=== PATIENT | female | born 1990 | race African-American/Black ===

== ENCOUNTER 2017-10-01 02:38 | Emergency (ER) | payer BC ==
[2017-10-01 03:35] LABS: Reticulocyte Count 3.4 % (0.5-1.5)
[2017-10-01 03:36] LABS: Hemoglobin 11.4 g/dL (12.0-16.0); Mean Corpuscular HGB CONC 35.4 g/dL (32.0-36.0); Mean Corpuscular Hemoglobin 29.9 pg (27.0-31.0); Mean Corpuscular Volume 84.4 fl (81.0-99.0); Mean Platelet Volume 6.7 fL (7.4-10.4); Platelet Count 313 thou/uL (130-400); RBC Distribution Width 14.9 % (11.5-14.5); Red Blood Cell (RBC) Count 3.82 mill/uL (4.20-5.40)
[2017-10-01 03:37] LABS: BHCG - Serum Negative (NEGATIVE); Pregs Control Background? CLEAR/WHITE (CLR/WHITE); Pregs Control Bar Appear? YES (CONTROL BAR)
[2017-10-01 03:45] LABS: ALT (SGPT) 16 U/L (8-55); AST (SGOT) 21 U/L (5-34); Albumin 4.6 g/dL (3.5-5.0); Alkaline Phosphatase 50 U/L (40-150); Anion Gap 14 mmol/L (10-20); BUN (Urea Nitrogen) 11 mg/dL (7.0-18.7); Bilirubin, Total 2.2 mg/dL (0.2-1.2); Calc. Creatinine Clearance 0 mL/min (70-130); Calcium 9.3 mg/dL (7.8-10.44); Carbon Dioxide 20 mmol/L (22-29); Chloride 106 mmol/L (98-107); Estimated GFR-MDRD Greater than 90; Globulin 3.2 g/dL (2.4-3.5); Glucose 88 mg/dL (70-105); Potassium 4.6 mmol/L (3.5-5.1); Protein, Total 7.8 g/dL (6.0-8.3); Sodium 135 mmol/L (136-145)
[2017-10-01 03:49] LABS: Band 1 % (5-11); Eosinophils 1 % (0-10); Hemoglobin C Crystals SLIGHT (None Seen); Lymphocytes 36 % (21-51); MDiff Complete? YES; Monocytes 3 % (0-10); Neutrophil 59 % (42-75); Target Cells SLIGHT = 2-5 cells (100X) (0-1/hpf); White Blood Cell (WBC) Count 9.6 thou/uL (4.8-10.8)
[2017-10-01] MEDS ORDERED: Ketorolac Tromethamine 30 MG/ML VIAL ONE (03:49)
== END 2017-10-01 04:52 | disposition home or self-care (01) ==
LOC: ERS 02:38
DX: D57.1 Sickle-cell disease without crisis (principal)
CPT/HCPCS: 80053; 84703; 85025; 85046; 96361; 96374; J1885

== ENCOUNTER 2017-12-21 21:11 | Emergency (ER) | payer BC ==
[2017-12-21 22:32] LABS: Pregnancy Test - Urine (BHCG) Negative (Negative); Pregu Control Background? CLEAR/WHITE (CLR/WHITE); Pregu Control Bar Appear? YES (CONTROL BAR); Specific Gravity 1.013 (1.002-1.036)
[2017-12-21] MEDS ORDERED: Ketorolac Tromethamine 30 MG/ML VIAL ONE (22:48)
== END 2017-12-21 23:07 | disposition home or self-care (01) ==
LOC: ERS 21:11
DX: K02.9 Dental caries, unspecified (principal); K05.10 Chronic gingivitis, plaque induced; D57.1 Sickle-cell disease without crisis
CPT/HCPCS: 81025; 96372; J1885

== ENCOUNTER 2018-01-03 05:37 | Emergency (ER) | payer BC | END 2018-01-03 06:02 | disposition home or self-care (01) | LOC: ERS 05:37 | DX: R05 Cough (principal); D57.1 Sickle-cell disease without crisis | CPT/HCPCS: 99283 ==

== ENCOUNTER 2018-04-26 23:46 | Emergency (ER) | payer BC ==
[2018-04-27 00:54] LABS: Anion Gap 13 mmol/L (10-20); BUN (Urea Nitrogen) 11 mg/dL (7.0-18.7); Calc. Creatinine Clearance 0 mL/min (70-130); Carbon Dioxide 23 mmol/L (22-29); Chloride 106 mmol/L (98-107); Estimated GFR-MDRD Greater than 90; Glucose 90 mg/dL (70-105); Potassium 3.8 mmol/L (3.5-5.1); Sodium 138 mmol/L (136-145)
[2018-04-27 01:09] LABS: Band 46 % (5-11); Eosinophils 6 % (0-10); Hemoglobin 10.8 g/dL (12.0-16.0); Hypochromia SLIGHT = 6-15 cells (100X) (0-5/hpf); Lymphocytes 1 % (21-51); MDiff Complete? YES; Mean Corpuscular HGB CONC 36.5 g/dL (32.0-36.0); Mean Corpuscular Hemoglobin 30.3 pg (27.0-31.0); Mean Corpuscular Volume 82.9 fL (78.0-98.0); Mean Platelet Volume 7.4 fL (7.4-10.4); Myelocyte 1 % (0-0); Neutrophil 4 % (42-75); Nucleated RBC 2 % (0); PLT Morphology Comment Appears Adequate; Platelet Count 264 thou/uL (130-400); Polychromasia SLIGHT = 2-3 cells (100X) (0-2/hpf); RBC Distribution Width 15.7 % (11.5-14.5); Reactive Lymphocytes 42 % (0-10); Red Blood Cell (RBC) Count 3.57 mill/uL (4.20-5.40); White Blood Cell (WBC) Count 10.4 thou/uL (4.8-10.8)
[2018-04-27 01:53] LABS: ALT (SGPT) 47 U/L (8-55); AST (SGOT) 38 U/L (5-34); Albumin 4.5 g/dL (3.5-5.0); Alkaline Phosphatase 49 U/L (40-150); Bilirubin, Direct 0.7 mg/dL (0.1-0.3); Bilirubin, Total 2.2 mg/dL (0.2-1.2); Protein, Total 7.5 g/dL (6.0-8.3)
[2018-04-27 03:24] LABS: Bilirubin Negative (Negative); Blood, Urine Negative (Negative); Clarity CLEAR (Clear); Glucose, Urine (Dipstick) Negative (Negative); Leukocyte Negative (Negative); Nitrite Negative (Negative); Pregnancy Test - Urine (BHCG) Negative (Negative); Protein, Urine (Dipstick) Negative (Neg-Trace); Specific Gravity, Urine 1.011 (1.002-1.036)
[2018-04-27 03:25] LABS: Pregu Control Background? CLEAR/WHITE (CLR/WHITE); Pregu Control Bar Appear? YES (CONTROL BAR); Specific Gravity 1.011 (1.002-1.036)
[2018-04-27] MEDS ORDERED: Ketorolac Tromethamine 30 MG/ML VIAL ONE (03:32)
== END 2018-04-27 04:02 | disposition home or self-care (01) ==
LOC: ERS 23:46
DX: D57.00 Hb-SS disease with crisis, unspecified (principal)
CPT/HCPCS: 36415; 80048; 80076; 81003; 81025; 85025; 85046; 96361; 96374; J1885

== ENCOUNTER 2018-05-15 21:28 | Emergency (ER) | payer BC | END 2018-05-15 22:30 | disposition home or self-care (01) | LOC: ERS 21:28 | DX: B02.9 Zoster without complications (principal) | CPT/HCPCS: 99282 ==

== ENCOUNTER 2018-05-27 09:31 | Emergency (ER) | payer BC ==
[2018-05-27 10:27] LABS: Bilirubin Negative (Negative); Blood, Urine Negative (Negative); Clarity CLEAR (Clear); Glucose, Urine (Dipstick) Negative (Negative); Leukocyte Negative (Negative); Nitrite Negative (Negative); Protein, Urine (Dipstick) Negative (Neg-Trace); Specific Gravity, Urine 1.013 (1.002-1.036)
[2018-05-27 10:31] LABS: Pregnancy Test - Urine (BHCG) Negative (Negative); Pregu Control Background? CLEAR/WHITE (CLR/WHITE); Pregu Control Bar Appear? YES (CONTROL BAR); Specific Gravity 1.013 (1.002-1.036)
[2018-05-27 10:41] LABS: Reticulocyte Count 3.9 % (0.5-1.5)
[2018-05-27 10:59] LABS: Anion Gap 10 mmol/L (10-20); BUN (Urea Nitrogen) 6 mg/dL (7.0-18.7); Calc. Creatinine Clearance 0 mL/min (70-130); Carbon Dioxide 25 mmol/L (22-29); Chloride 106 mmol/L (98-107); Estimated GFR-MDRD Greater than 90; Sodium 137 mmol/L (136-145)
[2018-05-27 11:00] LABS: ALT (SGPT) 10 U/L (8-55); AST (SGOT) 16 U/L (5-34); Albumin 4.3 g/dL (3.5-5.0); Alkaline Phosphatase 44 U/L (40-150); Bilirubin, Total 2.7 mg/dL (0.2-1.2); Globulin 2.8 g/dL (2.4-3.5); Glucose 88 mg/dL (70-105); Protein, Total 7.1 g/dL (6.0-8.3)
[2018-05-27 11:04] LABS: Band 2 % (5-11); Eosinophils 2 % (0-10); Hemoglobin 10.8 g/dL (12.0-16.0); Hemoglobin C Crystals MODERATE (None Seen); Lymphocytes 41 % (21-51); MDiff Complete? YES; Mean Corpuscular HGB CONC 35.1 g/dL (32.0-36.0); Mean Corpuscular Hemoglobin 29.5 pg (27.0-31.0); Mean Corpuscular Volume 84.2 fL (78.0-98.0); Mean Platelet Volume 7.6 fL (7.4-10.4); Monocytes 5 % (0-10); Neutrophil 47 % (42-75); PLT Morphology Comment Appears Adequate; Platelet Count 307 thou/uL (130-400); Polychromasia MODERATE = 3-4 cells (100X) (0-2/hpf); RBC Distribution Width 15.7 % (11.5-14.5); Reactive Lymphocytes 1 % (0-10); Red Blood Cell (RBC) Count 3.64 mill/uL (4.20-5.40); Reflex for Review?? NO; Sickle Cells SLIGHT = 1-5 cells (100X) (None Seen); Target Cells MODERATE= 6-15 cells (100X) (0-1/hpf); White Blood Cell (WBC) Count 7.4 thou/uL (4.8-10.8)
[2018-05-27] MEDS ORDERED: Acetaminophen 500 MG TAB ONE (11:16)
[2018-05-27] MEDS ORDERED: diphenhydrAMINE 50 MG/ML VIAL ONE (11:16)
[2018-05-27] MEDS ORDERED: Morphine 10 MG/ML VIAL ONE (11:16)
== END 2018-05-27 13:30 | disposition home or self-care (01) ==
LOC: ERS 09:31
DX: D57.00 Hb-SS disease with crisis, unspecified (principal)
CPT/HCPCS: 36415; 80053; 81003; 81025; 85025; 85046; 96361; 96374; 96375; J1200; J2270

== ENCOUNTER 2018-07-24 00:30 | Emergency (ER) | payer BC ==
[2018-07-24] MEDS ORDERED: Ketorolac Tromethamine 60 MG/2 ML VIAL ONE (02:51)
== END 2018-07-24 03:12 | disposition home or self-care (01) ==
LOC: ERS 00:30
DX: M26.622 Arthralgia of left temporomandibular joint (principal); D57.1 Sickle-cell disease without crisis
CPT/HCPCS: 87081; 87430; 96372; J1885

== ENCOUNTER 2018-08-27 08:50 | Observation (INO) | payer BC ==
[2018-08-27] MEDS ORDERED: Acetaminophen 500 MG TAB ONE (09:00)
[2018-08-27] MEDS ORDERED: diphenhydrAMINE 50 MG/ML VIAL ONE (09:11)
[2018-08-27] MEDS ORDERED: Morphine 4 MG/ML VIAL ONE (09:11)
[2018-08-27 09:36] LABS: ALT (SGPT) 22 U/L (8-55); AST (SGOT) 31 U/L (5-34); Albumin 4.2 g/dL (3.5-5.0); Alkaline Phosphatase 61 U/L (40-150); Anion Gap 13 mmol/L (10-20); BUN (Urea Nitrogen) 5 mg/dL (7.0-18.7); Bilirubin, Total 1.6 mg/dL (0.2-1.2); Calc. Creatinine Clearance 0 mL/min (70-130); Calcium 8.9 mg/dL (7.8-10.44); Carbon Dioxide 22 mmol/L (22-29); Chloride 106 mmol/L (98-107); Estimated GFR-MDRD Greater than 90; Globulin 3.4 g/dL (2.4-3.5); Glucose 91 mg/dL (70-105); Potassium 3.7 mmol/L (3.5-5.1); Protein, Total 7.6 g/dL (6.0-8.3); Reticulocyte Count 4.5 % (0.5-1.5); Sodium 137 mmol/L (136-145)
[2018-08-27 09:37] LABS: Hemoglobin 10.5 g/dL (12.0-16.0); Mean Corpuscular HGB CONC 35.3 g/dL (32.0-36.0); Mean Corpuscular Hemoglobin 28.8 pg (27.0-31.0); Mean Corpuscular Volume 81.4 fL (78.0-98.0); Mean Platelet Volume 7.8 fL (7.4-10.4); Platelet Count 285 thou/uL (130-400); RBC Distribution Width 16.7 % (11.5-14.5); Red Blood Cell (RBC) Count 3.64 mill/uL (4.20-5.40)
[2018-08-27 10:05] LABS: Band 2 % (5-11); Eosinophils 2 % (0-10); Hemoglobin C Crystals MODERATE (None Seen); Lymphocytes 27 % (21-51); MDiff Complete? YES; Metamyelocyte 2 % (0-0); Monocytes 1 % (0-10); Neutrophil 63 % (42-75); Nucleated RBC 3 % (0); Reactive Lymphocytes 3 % (0-10); Reflex for Review?? NO; Sickle Cells SLIGHT = 1-5 cells (100X) (None Seen); Target Cells MODERATE= 6-15 cells (100X) (0-1/hpf)
[2018-08-27] MEDS ORDERED: cefTRIAXone\\ROCEPHIN 1 GM VIAL ONE (10:14)
[2018-08-27] MEDS ORDERED: Azithromycin 500 MG VIAL ONE (10:14)
--- NOTE | 2018-08-27 10:26 | RAD ---
SINGLE VIEW OF THE CHEST: COMPARISON: 08/27/2018. HISTORY: Chest pain that is worsening today. Sickle cell disease. FINDINGS: A single view of the chest shows a normal-size cardiomediastinal silhouette. There is no evidence of consolidation, mass, or pleural effusion. The bones are unremarkable. IMPRESSION: No evidence of acute cardiopulmonary disease. POS: [facility]
[2018-08-27] MEDS ORDERED: Enoxaparin Sodium 40 MG/0.4 ML SYRINGE SC SCH (13:29)
[2018-08-27] MEDS ORDERED: Ondansetron PF 4 MG/2 ML Vial IVP PRN (13:29)
[2018-08-27] MEDS: Sodium Chloride 0.9% 1,000 ML IV SCH ×2 (13:34→20:35)
[2018-08-27] MEDS ORDERED: Acetaminophen 325 MG TAB PO PRN (13:42)
[2018-08-27] MEDS: Morphine 4 MG/ML VIAL SLOW IVP PRN ×2 (13:49→20:30)
[2018-08-27 14:15] VITALS: BMI 26.3
[2018-08-27] MEDS: HYDROcodone/Acetaminophen 10/325 mg Tablet PO PRN (15:50)
[2018-08-27] MEDS: Famotidine 20 MG TAB PO SCH (20:31)
[2018-08-28] MEDS: Morphine 4 MG/ML VIAL SLOW IVP PRN ×2 (03:35→20:19)
[2018-08-28] MEDS: Sodium Chloride 0.9% 1,000 ML IV SCH ×3 (03:44→22:51)
[2018-08-28 07:53] LABS: Anion Gap 14 mmol/L (10-20); BUN (Urea Nitrogen) 5 mg/dL (7.0-18.7); Calc. Creatinine Clearance 141 mL/min (70-130); Calcium 8.6 mg/dL (7.8-10.44); Carbon Dioxide 18 mmol/L (22-29); Chloride 104 mmol/L (98-107); Estimated GFR-MDRD Greater than 90; Glucose 81 mg/dL (70-105); Potassium 3.9 mmol/L (3.5-5.1); Sodium 132 mmol/L (136-145)
[2018-08-28] MEDS: Famotidine 20 MG TAB PO SCH ×2 (09:40→20:15)
[2018-08-28] MEDS: HYDROcodone/Acetaminophen 10/325 mg Tablet PO PRN ×4 (09:40→22:49)
[2018-08-28] MEDS: Enoxaparin Sodium 40 MG/0.4 ML SYRINGE SC SCH (09:43)
[2018-08-28 10:19] LABS: White Blood Cell (WBC) Count 13.2 thou/uL (4.8-10.8)
[2018-08-28 10:23] LABS: Hemoglobin 9.9 g/dL (12.0-16.0); Mean Corpuscular HGB CONC 35.6 g/dL (32.0-36.0); Mean Corpuscular Hemoglobin 28.7 pg (27.0-31.0); Mean Corpuscular Volume 80.6 fL (78.0-98.0); Mean Platelet Volume 7.8 fL (7.4-10.4); Platelet Count 235 thou/uL (130-400); Red Blood Cell (RBC) Count 3.44 mill/uL (4.20-5.40); White Blood Cell (WBC) Count 15.8 thou/uL (4.8-10.8)
[2018-08-28 10:32] LABS: Burr Cells SLIGHT = 2-5 cells (100X) (0-1/hpf); Eosinophils 1 % (0-10); Hypochromia SLIGHT = 6-15 cells (100X) (0-5/hpf); Lymphocytes 11 % (21-51); MDiff Complete? YES; Monocytes 11 % (0-10); Neutrophil 77 % (42-75); PLT Morphology Comment Appears Adequate; Polychromasia SLIGHT = 2-3 cells (100X) (0-2/hpf); Target Cells MODERATE= 6-15 cells (100X) (0-1/hpf)
[2018-08-28] MEDS: Azithromycin 250 MG TAB PO SCH (12:09)
[2018-08-28] MEDS: cefTRIAXone\\ROCEPHIN 2 GM in Sodium Chloride 0.9% 100 ML IVPB SCH (12:10)
--- NOTE | 2018-08-28 14:34 | PDOC.PN ---
- Subjective Encounter Start Date: 08/28/18 Encounter Start Time: 08:15 follow up for CAP, sepsis, sickle cell pain crisis. pain better, controlled, minimal cough, no F/C, Tmax 100.1. donaldo abx, no CP, pain in back and legs. No N/V/D/C all systems reviewed and neg x as above - Objective Resuscitation Status - Order Detail: 08/27/18 12:08 Resuscitation Status Routine Resuscitation Status: FULL: Full Resuscitation MAR Reviewed: Yes Vital Signs & Weight: Vital Signs (12 hours) Temp Pulse Resp BP Pulse Ox 08/28/18 11:16 98.3 F 85 17 124/76 94 L 08/28/18 06:59 100.1 F H 94 20 138/78 95 08/28/18 04:00 99.6 F 99 18 130/77 95 Weight Weight 163 lb 1.6 oz I&O: 08/27/18 08/28/18 08/29/18 06:59 06:59 06:59 Intake Total 2950 Balance 2950 Result Diagrams: 08/28/18 07:19 08/28/18 07:19 Phys Exam - Physical Examination Constitutional: NAD HEENT: PERRLA, moist MMs, sclera anicteric, oral pharynx no lesions Neck: no nodes, no JVD, supple, full ROM Respiratory: no wheezing, no rhonchi crackles posterior left lung bagley Cardiovascular: RRR, no significant murmur Gastrointestinal: soft, non-tender, no distention, positive bowel sounds Musculoskeletal: no edema, pulses present Neurological: non-focal, normal sensation, moves all 4 limbs Lymphatic: no nodes Psychiatric: normal affect, A&O x 3 Skin: no rash, normal turgor, cap refill <2 seconds Dx/Plan (1) CAP (community acquired pneumonia) Code(s): J18.9 - PNEUMONIA, UNSPECIFIED ORGANISM Status: Acute Qualifiers: Laterality: left Lung location: unspecified part of lung Qualified Code(s ): J18.9 - Pneumonia, unspecified organism (2) Sepsis Code(s): A41.9 - SEPSIS, UNSPECIFIED ORGANISM Status: Acute Qualifiers: Sepsis type: sepsis due to unspecified organism Qualified Code(s): A41.9 - Sepsis, unspecified organism (3) Sickle cell crisis Code(s): D57.00 - HB-SS DISEASE WITH CRISIS, UNSPECIFIED Status: Acute (4) Sickle cell anemia Code(s): D57.1 - SICKLE-CELL DISEASE WITHOUT CRISIS Status: Chronic Qualifiers: Sickle-cell associated disorders: with unspecified crisis Qualified Code(s) : D57.00 - Hb-SS disease with crisis, unspecified; D57.0 - Hb-SS disease with crisis - Plan cont current plan of care, continue antibiotics, respiratory therapy * .
[2018-08-28] MEDS: Ondansetron ODT 4 MG TAB PO PRN (22:49)
[2018-08-29] MEDS: Morphine 4 MG/ML VIAL SLOW IVP PRN (03:19)
[2018-08-29] MEDS: HYDROcodone/Acetaminophen 10/325 mg Tablet PO PRN ×4 (05:52→20:48)
[2018-08-29] MEDS: Sodium Chloride 0.9% 1,000 ML IV SCH ×3 (05:53→22:28)
[2018-08-29 06:02] LABS: Anion Gap 11 mmol/L (10-20); BUN (Urea Nitrogen) 5 mg/dL (7.0-18.7); Calc. Creatinine Clearance 141 mL/min (70-130); Calcium 8.5 mg/dL (7.8-10.44); Carbon Dioxide 21 mmol/L (22-29); Chloride 103 mmol/L (98-107); Estimated GFR-MDRD Greater than 90; Glucose 96 mg/dL (70-105); Magnesium 1.8 mg/dL (1.6-2.6); Sodium 131 mmol/L (136-145)
[2018-08-29 06:47] LABS: Hemoglobin 9.6 g/dL (12.0-16.0); Hypochromia SLIGHT = 6-15 cells (100X) (0-5/hpf); Lymphocytes 6 % (21-51); MDiff Complete? YES; Mean Corpuscular HGB CONC 36.3 g/dL (32.0-36.0); Mean Corpuscular Hemoglobin 29.2 pg (27.0-31.0); Mean Corpuscular Volume 80.5 fL (78.0-98.0); Monocytes 6 % (0-10); Neutrophil 88 % (42-75); PLT Morphology Comment Appears Adequate; Platelet Count 218 thou/uL (130-400); Polychromasia SLIGHT = 2-3 cells (100X) (0-2/hpf); RBC Distribution Width 15.7 % (11.5-14.5); Red Blood Cell (RBC) Count 3.29 mill/uL (4.20-5.40); Schistocytes SLIGHT = 2-5 cells (100X) (0-1/hpf); Sickle Cells SLIGHT = 1-5 cells (100X) (None Seen); Target Cells MODERATE= 6-15 cells (100X) (0-1/hpf); White Blood Cell (WBC) Count 16.6 thou/uL (4.8-10.8)
[2018-08-29] MEDS: Enoxaparin Sodium 40 MG/0.4 ML SYRINGE SC SCH (08:22)
[2018-08-29] MEDS: Famotidine 20 MG TAB PO SCH ×2 (08:22→20:25)
[2018-08-29] MEDS: cefTRIAXone\\ROCEPHIN 2 GM in Sodium Chloride 0.9% 100 ML IVPB SCH (10:12)
[2018-08-29] MEDS: Azithromycin 250 MG TAB PO SCH (10:13)
--- NOTE | 2018-08-29 15:27 | RAD ---
CHEST 2 VIEWS: HISTORY: Chest pain. Dyspnea. COMPARISON: 08/27/2018. FINDINGS: Cardiac silhouette and pulmonary vasculature are unremarkable. Mediastinum is midline. There is obs curation of the posterior aspect of the right hemidiaphragm with blunting of the posterior costophren ic angle. Left lung is clear. No evidence of pneumothorax. IMPRESSION: Mild right posterior basilar infiltrate and minimal pleural fluid. Clinical correlation regarding ot her signs and symptoms of right basilar pneumonitis is required. POS: [facility]
[2018-08-29] MEDS: Ondansetron ODT 4 MG TAB PO PRN (20:25)
[2018-08-30] MEDS: HYDROcodone/Acetaminophen 10/325 mg Tablet PO PRN ×2 (05:19→09:40)
[2018-08-30] MEDS: Sodium Chloride 0.9% 1,000 ML IV SCH ×2 (05:24→15:26)
[2018-08-30 07:19] LABS: ALT (SGPT) 29 U/L (8-55); AST (SGOT) 34 U/L (5-34); Albumin 3.3 g/dL (3.5-5.0); Alkaline Phosphatase 58 U/L (40-150); Anion Gap 11 mmol/L (10-20); BUN (Urea Nitrogen) 4 mg/dL (7.0-18.7); Bilirubin, Total 1.6 mg/dL (0.2-1.2); Calc. Creatinine Clearance 167 mL/min (70-130); Calcium 8.4 mg/dL (7.8-10.44); Carbon Dioxide 21 mmol/L (22-29); Chloride 107 mmol/L (98-107); Estimated GFR-MDRD Greater than 90; Globulin 3.1 g/dL (2.4-3.5); Glucose 85 mg/dL (70-105); Magnesium 2.2 mg/dL (1.6-2.6); Potassium 4.2 mmol/L (3.5-5.1); Protein, Total 6.4 g/dL (6.0-8.3); Sodium 135 mmol/L (136-145)
[2018-08-30 09:18] LABS: Hemoglobin 8.2 g/dL (12.0-16.0); Mean Corpuscular HGB CONC 36.9 g/dL (32.0-36.0); Mean Corpuscular Volume 81.2 fL (78.0-98.0); Mean Platelet Volume 7.8 fL (7.4-10.4); Platelet Count 185 thou/uL (130-400); RBC Distribution Width 15.9 % (11.5-14.5); Red Blood Cell (RBC) Count 2.72 mill/uL (4.20-5.40)
[2018-08-30 09:23] LABS: Anisocytosis SLIGHT = 6-15 cells (100X) (0-5/hpf); Eosinophils 4 % (0-10); Hypochromia SLIGHT = 6-15 cells (100X) (0-5/hpf); Large Platelets SLIGHT; Lymphocytes 13 % (21-51); MDiff Complete? YES; Macrocytosis SLIGHT = 6-15 cells (100X) (0-5/hpf); Microcytosis SLIGHT = 6-15 cells (100X) (0-5/hpf); Monocytes 10 % (0-10); Neutrophil 67 % (42-75); Nucleated RBC 2 % (0); PLT Morphology Comment Appears Adequate; Polychromasia SLIGHT = 2-3 cells (100X) (0-2/hpf); Reactive Lymphocytes 6 % (0-10); Schistocytes SLIGHT = 2-5 cells (100X) (0-1/hpf); Sickle Cells SLIGHT = 1-5 cells (100X) (None Seen); Target Cells SLIGHT = 2-5 cells (100X) (0-1/hpf); White Blood Cell (WBC) Count 11.7 thou/uL (4.8-10.8)
[2018-08-30] MEDS: Famotidine 20 MG TAB PO SCH (09:40)
[2018-08-30] MEDS: Enoxaparin Sodium 40 MG/0.4 ML SYRINGE SC SCH (09:41)
[2018-08-30] MEDS: cefTRIAXone\\ROCEPHIN 2 GM in Sodium Chloride 0.9% 100 ML IVPB SCH (09:41)
[2018-08-30] MEDS: Azithromycin 250 MG TAB PO SCH (11:56)
[2018-08-30 12:02] VITALS: BP 106/64; TEMP 98
--- NOTE | 2018-08-30 22:55 | DIS ---
DATE OF ADMISSION: 08/27/2018 DATE OF DISCHARGE: 08/30/2018 DISCHARGE DIAGNOSES: 1. Sickle cell pain crisis. 2. Pneumonia. 3. Sepsis. HISTORY OF PRESENT ILLNESS: The patient is a 28-year-old female with a history of sickle cell disease, who presented to the emergency department. She was initially seen at the [facility] ED late the night for pain, but left AMA at 2:30 in the morning declining admission. The pain worsened. She presented to our facility. She was given tramadol and Augmentin prior to arriving. She had evidence of possible infiltrate on her chest x-ray. She received Rocephin, azithromycin, morphine, diphenhydramine, and was admitted to the hospital. The patient continued to receive fluids, IV antibiotics, and pain management. Her pain resolved. On the day of discharge, she reported that she was pain-free and actually was having some difficulty tolerating some of the pain medications because they were upsetting her stomach. She was breathing comfortably, had no respiratory complaints and felt comfortable going home. PHYSICAL EXAMINATION: VITAL SIGNS: Pulse 74, respirations 18, temperature 92, BP 106/64. GENERAL APPEARANCE: Age-appropriate female, in no distress. Awake, alert, oriented, pleasant, and cooperative. HEART: Regular rate and rhythm without murmurs, gallops, or rubs. LUNGS: Clear to auscultation bilaterally with good chest wall expansion and air exchange. ABDOMEN: Soft, nontender, and nondistended. Positive bowel sounds. No masses. No organomegaly. LABORATORY DATA: White count down to 11.7, hemoglobin 8.2. Sodium 135, potassium 4.2, BUN 4, creatinine 0.58, total bilirubin 1.6. DISPOSITION: The patient is discharged home. She will be on cefuroxime 500 mg p.o. b.i.d., azithromycin 250 mg p.o. daily. FOLLOWUP: She will follow up with her PCP and she can return to the hospital should she have any problems prior to that time. In the interim, she will be on a regular diet. ACTIVITY: Her activity level is as tolerated. She should not return to work before . Job ID: [id number]
== END 2018-08-30 16:52 | disposition home or self-care (01) ==
LOC: ERS 08:50 → ERHOLD 10:27 → T4-A 13:40
PROVIDERS: ADMIT Internal Medicine Infectious Disease; ATTEND Internal Medicine Infectious Disease
DX: D57.00 Hb-SS disease with crisis, unspecified (principal); J18.9 Pneumonia, unspecified organism; A41.9 Sepsis, unspecified organism; Z79.2 Long term (current) use of antibiotics
CPT/HCPCS: 36415; 71045; 71046; 80048; 80053; 83735; 85025; 85046; 94760; 96361; 96365; 96366; 96367; 96372; 96375; 96376; G0378; J0456; J0696; J1200; J1650; J2270; J2405; J7050; Q0162

== ENCOUNTER 2018-11-28 10:58 | Emergency (ER) | payer SELFPAY ==
[2018-11-28] MEDS ORDERED: traMADol HCl 50 MG TAB ONE (11:13)
[2018-11-28 11:48] LABS: Reticulocyte Count 3.2 % (0.5-1.5)
[2018-11-28 12:06] LABS: Anion Gap 11 mmol/L (10-20); BUN (Urea Nitrogen) 8 mg/dL (7.0-18.7); Calc. Creatinine Clearance 0 mL/min (70-130); Calcium 9.4 mg/dL (7.8-10.44); Carbon Dioxide 23 mmol/L (22-29); Chloride 107 mmol/L (98-107); Estimated GFR-MDRD Greater than 90; Glucose 87 mg/dL (70-105); Potassium 4.3 mmol/L (3.5-5.1); Sodium 137 mmol/L (136-145)
[2018-11-28 12:11] LABS: Band 1 % (5-11); Hemoglobin 11.3 g/dL (12.0-16.0); Lymphocytes 37 % (21-51); MDiff Complete? YES; Mean Corpuscular HGB CONC 34.4 g/dL (32.0-36.0); Mean Corpuscular Hemoglobin 28.4 pg (27.0-31.0); Mean Corpuscular Volume 82.6 fL (78.0-98.0); Mean Platelet Volume 7.5 fL (7.4-10.4); Monocytes 3 % (0-10); Neutrophil 59 % (42-75); Nucleated RBC 1 % (0); Platelet Count 311 thou/uL (130-400); Polychromasia SLIGHT = 2-3 cells (100X) (0-2/hpf); Red Blood Cell (RBC) Count 3.97 mill/uL (4.20-5.40); Sickle Cells SLIGHT = 1-5 cells (100X) (None Seen); Target Cells MODERATE= 6-15 cells (100X) (0-1/hpf); White Blood Cell (WBC) Count 10.1 thou/uL (4.8-10.8)
== END 2018-11-28 13:30 | disposition home or self-care (01) ==
LOC: ERS 10:58
DX: D57.00 Hb-SS disease with crisis, unspecified (principal)
CPT/HCPCS: 36415; 80048; 85025; 85046; 99283